=== PATIENT | female | born 1985 | race Caucasian/White ===

== ENCOUNTER 2021-01-28 06:00 | Emergency (ER) | payer OTHER, SELFPAY ==
[2021-01-28] MEDS ORDERED: Ibuprofen 200 MG TAB ONE (08:14)
== END 2021-01-28 08:30 | disposition home or self-care (01) ==
LOC: CSHERS 06:00
DX: S40.021A Contusion of right upper arm, initial encounter (principal); F17.210 Nicotine dependence, cigarettes, uncomplicated; W01.0XXA Fall on same level from slipping, tripping and stumbling without subsequent striking against object, initial encounter